=== PATIENT | male | born 1935 | race Caucasian/White ===

== ENCOUNTER 2018-01-01 18:18 | Inpatient (IN) | payer OTHER, MEDICAID ==
[~2018-01-01] VITALS: Ht 175.3 cm; Wt 88.5 kg
[2018-01-01 18:20] VITALS: Ht 175.3 cm; Wt 88.5 kg
[2018-01-01 19:15] LABS: BASOPHIL % 0.2 % (0-2); PLATELET COUNT 274 x10^3mcL (130-400); RED CELL DISTRIBUTION WIDTH 13.2 % (11.5-14.5)
[2018-01-01 19:30] LABS: CHLORIDE SERUM 107 mmol/L (98-107); CREATININE SERUM 1.2 mg/dL (0.7-1.3); GLUCOSE SERUM 138 mg/dL (74-106); POTASSIUM SERUM 4.4 mmol/L (3.5-5.1); SODIUM SERUM 144 mmol/L (136-145)
[2018-01-01 19:35] LABS: ALKALINE PHOSPHATASE 100 U/L (46-116); ALT/SGPT 21 U/L (16-63); AST/SGOT 13 U/L (15-37); BILIRUBIN TOTAL 0.79 mg/dL (0.20-1.00); MAGNESIUM 2.3 mg/dL (1.8-2.4); PHOSPHOROUS 3.9 mg/dL (2.5-4.9)
[2018-01-01 19:51] LABS: ALBUMIN 3.2 g/dL (3.4-5.0)
[2018-01-01 20:32] LABS: microscopic required? YES; urine erythrocyte TRACE (NEGATIVE)
[2018-01-01 20:53] LABS: CHOLESTEROL/HDL RATIO 3.4
[2018-01-01 21:02] LABS: T3 TOTAL 0.76 ng/mL
[2018-01-01 21:03] LABS: FREE THYROXINE INDEX 2.8 ug/dL (1.4-4.5); T4(THYROXINE) 7.9 ug/dL (4.7-13.3)
[2018-01-01 21:31] VITALS: BP 144/78
[2018-01-01] MEDS ORDERED: ARICEPT10 MG (21:32)
[2018-01-01] MEDS ORDERED: COLACE100 MG (21:33)
[2018-01-01] MEDS ORDERED: MOM (21:36)
[2018-01-01] MEDS ORDERED: OSCD (21:36)
[2018-01-01] MEDS ORDERED: NAMENDA10 M2 (21:36)
[2018-01-01] MEDS ORDERED: TYLENOL325 M1 (21:39)
[2018-01-02 05:32] VITALS: BP 115/79
[2018-01-02 05:58] LABS: BASOPHIL % 0.3 % (0-2); PLATELET COUNT 240 x10^3mcL (130-400); RED CELL DISTRIBUTION WIDTH 13.1 % (11.5-14.5)
[2018-01-02 06:12] LABS: CALCIUM 8.8 mg/dL (8.5-10.1); CARBON DIOXIDE 27.5 mmol/L (21-32); CHLORIDE SERUM 111 mmol/L (98-107); GLUCOSE SERUM 104 mg/dL (74-106); MAGNESIUM 2.3 mg/dL (1.8-2.4); PHOSPHOROUS 2.9 mg/dL (2.5-4.9); SODIUM SERUM 147 mmol/L (136-145)
[2018-01-02 08:22] VITALS: BP 108/75
[2018-01-02 12:02] VITALS: BP 150/85
[2018-01-02 17:07] VITALS: BP 146/68
[2018-01-02 21:22] VITALS: BP 161/75
[2018-01-03 05:38] VITALS: BP 156/91
[2018-01-03 06:13] LABS: BASOPHIL % 0.5 % (0-2); PLATELET COUNT 269 x10^3mcL (130-400)
[2018-01-03 06:22] LABS: CARBON DIOXIDE 26.7 mmol/L (21-32); CHLORIDE SERUM 110 mmol/L (98-107); CREATININE SERUM 0.9 mg/dL (0.7-1.3); GLUCOSE SERUM 98 mg/dL (74-106); POTASSIUM SERUM 4.1 mmol/L (3.5-5.1); SODIUM SERUM 146 mmol/L (136-145)
[2018-01-03 07:57] VITALS: BP 140/57
[2018-01-03 13:30] VITALS: BP 135/81
[2018-01-03 16:19] VITALS: BP 146/82
[2018-01-03 21:33] VITALS: BP 166/85
[2018-01-04 05:09] VITALS: BP 175/86
[2018-01-04 06:03] LABS: BASOPHIL % 0.4 % (0-2); PLATELET COUNT 303 x10^3mcL (130-400); RED CELL DISTRIBUTION WIDTH 12.6 % (11.5-14.5)
[2018-01-04 06:05] LABS: CALCIUM 8.6 mg/dL (8.5-10.1); CHLORIDE SERUM 106 mmol/L (98-107); CREATININE SERUM 0.9 mg/dL (0.7-1.3); GLUCOSE SERUM 98 mg/dL (74-106); POTASSIUM SERUM 3.7 mmol/L (3.5-5.1); SODIUM SERUM 138 mmol/L (136-145)
[2018-01-04 09:23] VITALS: BP 154/80
[2018-01-04 13:53] VITALS: BP 167/87
[2018-01-04 14:32] VITALS: BP 149/89
[2018-01-04 14:35] VITALS: BP 149/89
[2018-01-04] MEDS ORDERED: ASPIR 8181 MG PO (15:31)
[2018-01-04] MEDS ORDERED: PLAVIX75 M1 PO (15:31)
== END 2018-01-04 17:26 | DRG 640 ==
LOC: ED 18:18 → DU 20:05
PROVIDERS: Emergency Medicine; Internal Medicine
DX: E86.0 Dehydration (principal); N17.0 Acute kidney failure with tubular necrosis; E44.1 Mild protein-calorie malnutrition; I65.21 Occlusion and stenosis of right carotid artery; R55 Syncope and collapse; G30.9 Alzheimer's disease, unspecified; F02.80 Dementia in other diseases classified elsewhere, unspecified severity, without behavioral disturbance, psychotic disturbance, mood disturbance, and anxiety; I10 Essential (primary) hypertension; F20.9 Schizophrenia, unspecified; F41.9 Anxiety disorder, unspecified; F32.9 Major depressive disorder, single episode, unspecified; Z68.25 Body mass index [BMI] 25.0-25.9, adult; Z96.642 Presence of left artificial hip joint; Z87.891 Personal history of nicotine dependence
CPT/HCPCS: 84439; 97110-GP; 97530-GP; J0282; J7030; Q0092